=== PATIENT | female | born 1970 | race Caucasian/White ===

== ENCOUNTER 2018-04-08 23:13 | Emergency (ER) | payer BC, OTHER ==
[2018-04-09] MEDS ORDERED: NS 0.9% 1000 ML* 2,000 ML IV ONE (00:09)
--- NOTE | 2018-04-09 00:18 | ED ---
GI/ HPI - HPI Summary HPI Summary: This patient is a 47 year old F presenting to [facility] accompanied by a friend with a chief complaint of vaginal bleeding since 04/03/18, but becoming very heavy since 04/06/18, whereas before the bleeding was normal. She endorses that this is her period, but the bleeding is much more severe than normal, soaking 3 or 4 pads today. Pt endorses kidney pain, mild dizziness, dysuria, flank and back pain, decreased appetite, RUE shoulder and wrist pain, and bilateral leg pain. She denies syncope, fever, and N/V. PMHx UTIs, hemorrhoids. - History of Current Complaint Chief Complaint: EDVaginalBleeding Time Seen by Provider: 04/09/18 00:02 Stated Complaint: HEAVY BLEEDING Hx Obtained From: Patient Onset/Duration: Started Days Ago, Still Present, Worse Since - 04/06/18 Timing: Constant, Lasting Days Severity: Mild Current Severity: Moderate Pain Intensity: 8 Location of Pain: Flank - bilateral Pain Characteristics: Sharp Pain Radiates to: Back Associated Signs and Symptoms: Positive: Back Pain, Dizziness, External Hemorrhoid, External Hemorrhoids, Dysuria, Change in Appetite, Flank Pain. Negative: Syncope, Nausea, Vomiting, Fever - Allergy/Home Medications Allergies/Adverse Reactions: Allergies Allergy/AdvReac Type Severity Reaction Status Date / Time latex Allergy Unknown Verified 04/08/18 23:23 Reaction Details Penicillins Allergy Unknown Verified 04/08/18 23:24 Reaction Details Sulfa (Sulfonamide Allergy Unknown Verified 04/08/18 23:24 Antibiotics) Reaction Details tetracycline Allergy Unknown Verified 04/08/18 23:24 Reaction Details seafood Allergy Unknown Uncoded 04/08/18 23:23 Reaction Details PMH/Surg Hx/FS Hx/Imm Hx Endocrine/Hematology History: Reports: Hx Thyroid Disease Cardiovascular History: Denies: Hx Myocardial Infarction Respiratory History: Denies: Hx Lung Cancer History: Reports: Other Problems/Disorders - UTI Denies: Hx Dialysis Sensory History: Reports: Hx Contacts or Glasses Denies: Hx Legally Blind, Hx Deafness Opthamlomology History: Reports: Hx Contacts or Glasses Denies: Hx Legally Blind EENT History: Denies: Hx Deafness Psychiatric History: Denies: Hx Schizophrenia - Immunization History Date of Tetanus Vaccine: unknown Date of Influenza Vaccine: 2015 Infectious Disease History: No Infectious Disease History: Denies: Traveled Outside the [place] in Last 30 Days - Family History Known Family History: Positive: Diabetes - Social History Occupation: Employed Full-time Lives: Alone Alcohol Use: None Hx Substance Use: No Substance Use Type: Reports: None Hx Tobacco Use: No Smoking Status (MU): Never Smoked Tobacco Review of Systems Negative: Fever Positive: Abdominal Pain, Other - hemorroids. Negative: Vomiting, Nausea Positive: dysuria, discharge - blood, flank pain, pain Positive: Myalgia - lower back Neurological: Other - dizziness Negative: Syncope All Other Systems Reviewed And Are Negative: Yes Physical Exam - Summary Physical Exam Summary: Appearance: Well-appearing, Well-nourished, lying in bed comfortably Skin: Warm, dry, no obvious rash Eyes: sclera anicteric, no conjunctival pallor ENT: mucous membranes moist, pharynx appears normal Neck: Supple, nontender Respiratory: Clear to auscultation, no signs of respiratory distress Cardiovascular: Normal S1, S2. No murmurs. Normal distal pulses in tibial and radial bilaterally. Abdomen: Soft, nontender, normal active bowel sounds present Musculoskeletal: Normal, Strength/ROM Intact Neurological: A&Ox3, awake and alert, mentation is normal, speech is fluent and appropriate Psychiatric: affect is normal, does not appear anxious or depressed Triage Information Reviewed: Yes Vital Signs On Initial Exam: Initial Vitals Temp Pulse Resp BP Pulse Ox 97.8 F 91 16 109/84 97 04/08/18 23:17 04/08/18 23:17 04/08/18 23:17 04/08/18 23:17 04/08/18 23:17 Vital Signs Reviewed: Yes Diagnostics - Vital Signs Vital Signs Temp Pulse Resp BP Pulse Ox 04/08/18 23:17 97.8 F 91 16 109/84 97 - Laboratory Result Diagrams: 04/09/18 00:12 04/09/18 00:12 Lab Statement: Any lab studies that have been ordered have been reviewed, and results considered in the medical decision making process. GIGU Course/Dx - Diagnoses Provider Diagnoses: Dysfunctional uterine bleeding Discharge - Sign-Out/Discharge Documenting (check all that apply): Patient Departure - discharge - Discharge Plan Patient Education Materials: Menorrhagia (ED) Referrals: John Riggins MD [Primary Care Provider] - Caryn Belcher MD [Medical Doctor] - Additional Instructions: Your tests tonight look good, you have not had enough bleeding to cause anemia. The urine test did not show evidence of infection. 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 - Attestation Statements Document Initiated by Scribe: Yes Documenting Scribe: Sree Longo Provider For Whom Scribe is Documenting (Include Credential): Dr. Jaime Chauhan MD Scribe Attestation: I, Sree Longo, scribed for Dr. Jaime Chauhan MD on 04/09/18 at 0103.
[2018-04-09 00:21] LABS: ABS Basophils 0.1 10^3/ul (0-0.2); ABS Eosinophils 0.1 10^3/ul (0-0.6); ABS Lymphocytes 2.7 10^3/ul (1.0-4.8); ABS Monocytes 0.6 10^3/ul (0-0.8); ABS Neutrophils 2.4 10^3/ul (1.5-7.7); ABS Nucleated RBC 0 10^3/ul; Eosinophil % 1.8 % (0-6); Hematocrit 39 % (35-47); Hemoglobin 13.5 g/dl (12.0-16.0); Lymphocyte % 45.7 % (25-47); Mean Corpuscular HGB Conc 34 g/dl (31-36); Mean Corpuscular Hemoglobin 31 pg (27-31); Mean Corpuscular Volume 90 fL (80-97); Mean Platelet Volume 7.4 um3 (7.4-10.4); Nucleated Red Blood Cells % 0.1; Platelet Count 205 10^3/ul (150-450); Red Blood Count 4.34 10^6/ul (4.00-5.40); Red Cell Distribution Width 15 % (10.5-15); White Blood Count 5.8 10^3/ul (3.5-10.8)
[2018-04-09 00:57] LABS: Urine Appearance Clear; Urine Blood 1+ (Negative); Urine Color Yellow; Urine Ketones Negative (Negative); Urine Protein Negative (Negative); Urine Red Blood Cell Trace(0-2/hpf) (Absent); Urine Urobilinogen Negative (Negative); Urine White Blood Cell Trace(0-5/hpf) (Absent)
[2018-04-09 01:13] VITALS: BP 142/77
== END 2018-04-09 01:39 | disposition home or self-care (01) ==
LOC: ED 23:13
DX: N93.8 Other specified abnormal uterine and vaginal bleeding (principal); M54.9 Dorsalgia, unspecified; R42 Dizziness and giddiness; Z88.0 Allergy status to penicillin; R30.0 Dysuria
CPT/HCPCS: 36415; 80053; 81003; 81015; 84702; 85025; 87086; 96360; 99283